=== PATIENT | female | born 1945 | race Caucasian/White ===

== ENCOUNTER 2020-06-13 13:06 | Outpatient (CLI) | payer MEDICARE, OTHER, SELFPAY ==
--- NOTE | 2020-06-13 13:13 | XR_ITS ---
WS: [id number] Right foot, 3 views, 06/13/2020 Clinical Data: PAIN IN TOES Comparison: None. Findings: No fractures or dislocations are seen. No bone destruction or erosion is noted. The joint spaces and soft tissues are unremarkable of the second through fifth toes There is a bunion at the head of the r ight first metatarsal. There is a large Achilles spur and smaller plantar spur. XR/XR foot RT min 3V* [id number] Impression: Negative for fracture or dislocation.
== END 2020-06-13 13:07 | disposition home or self-care (01) ==
LOC: RAD 13:08
PROVIDERS: PCP Family Medicine; Visit Provider Family Medicine
DX: M79.674 Pain in right toe(s) (principal)
CPT/HCPCS: 73630

== ENCOUNTER 2020-06-30 18:35 | Emergency (ER) | payer MEDICARE, OTHER, SELFPAY ==
[2020-06-30 18:47] VITALS: BP 178/80; PULSE 73; RESP 16; TEMP 36.8; O2SAT 99; BMI 25.9
[2020-06-30 21:26] VITALS: BP 176/86; PULSE 75; RESP 18; O2SAT 97
--- NOTE | 2020-06-30 21:29 | XRR_ITS ---
PROCEDURE INFORMATION: Exam: XR Chest, 1 View Exam date and time: 06/30/2020 9:54 PM Age: 74 years old Clinical indication: Hypertension TECHNIQUE: Imaging protocol: XR of the chest Views: 1 view. COMPARISON: CR Chest 1 [place] [id number] 07/05/2019 2:19 PM FINDINGS: Lungs: No lung consolidation or pulmonary edema. Pleural space: No pleural effusion or pneumothorax. Heart/Mediastinum: The cardiac silhouette is not enlarged. The mediastinal contours are normal. Bones/joints: No acute osseous abnormality. XR/XR chest 1V portable [id number] IMPRESSION: No acute abnormality.
--- NOTE | 2020-06-30 22:03 | W.ED.GENADLT ---
HPI - General Adult General: Chief complaint: General Medical Stated complaint: BP ISSUES Time Seen by Provider: 06/30/20 21:26 History of Present Illness: HPI narrative: This patient is a 74-year-old female who presents today with concerns about her blood pressure. She said she started feeling like her blood pressure was going up tonight and checked it at home. Initially it was around 140 systolic and then gradually worked its way up to 170 systolic. She has been on blood pressure medicine for a while and has not had any recent changes. She normally runs a blood pressure around 120/80. She is concerned that something might be going on that would be causing these blood pressure readings. She said this happened once before and she had a UTI. She has had no UTI symptoms today. She does say that occasionally she eats salty food but has not really had any today. After we talked for a while she told me that she is under a lot of stress and is having a lot of difficulty with her [id number] who lives across the street. She has been keeping her from seeing her grandson and that is really bothering her a lot. She said she does really have anyone to talk to about this problem because she does not want to bad mouth her [id number] to other people in the community or at their taoist. I suggested that she talk to her primary care doctor about a counselor so that she will have someone that she can speak freely to about the situation which clearly is affecting her quite a bit. Onset (ago): hour(s) (4) Associated symptoms: Deny chest pain, dyspnea, headache(s), malaise, nausea, rash or vomiting Review of Systems General: Reports: 10 or more systems reviewed and unremarkable except in HPI and below Const: Denies: fever(s), chills, fatigue or malaise Eyes: Denies: change in vision ENMT: Reports: tinnitus; Denies: odynophagia Card: Denies: chest pain or swelling of feet/ankles Resp: Denies: dyspnea, productive cough or non-productive cough GI: Denies: abdominal pain, nausea or vomiting : Denies: flank pain or difficulty voiding Musc: Denies: neck pain or back pain Skin/Breast: Denies: rash Neuro: Denies: headache(s), numbness in extremities or weakness in extremities Sher/Lymph: Denies: easy bruising or easy bleeding Physical Exam Const: COMMON NORMALS: no acute distress, patient oriented x3, no limitations and alert GENERAL APPEARANCE: cooperative and comfortable HENMT: HEAD & SCALP: normal to inspection FACE & SINUS: normal facial exam Eye: GENERAL EYE: appearance normal, both eyes and all related structures Neck/C-Spine: COMMON NORMALS: supple, no meningeal signs and no JVD Chest: COMMONS NORMALS: normal inspection of the chest Resp: COMMON NORMALS: normal respiratory effort, No use of accessory muscles and clear to auscultation bilaterally AUSCULTATION: clear to auscultation bilaterally Cardio: COMMON NORMALS: no JVD, regular rate, regular rhythm and No murmurs present (Cardio) RATE: regular rate RHYTHM: regular rhythm GI: COMMON NORMALS: Normal to inspection, nondistended, normoactive bowel sounds present, Soft to palpation and non-tender INSPECTION: Yes normal to inspection AUSCULTATION: Yes normoactive bowel sounds PALPATION: Yes Soft to palpation Back/Pelvis: COMMON NORMALS: thoracic and lumbar spine normal to inspection Extremity: COMMON NORMALS: normal to inspection Neuro: COMMON NORMALS: patient oriented x3, moves all extremities, no focal motor deficits and no sensory deficits noted SENSORIUM/ORIENTATION: Yes alert MENINGEAL SIGNS: Yes no meningeal signs Psych: COMMON NORMALS: mental status grossly normal, cooperative and normal affect Skin: COMMON NORMALS: no rashes or lesions noted and turgor normal GENERAL SKIN EXAM: no rashes or lesions noted and turgor normal Course ED course: On my evaluation I rechecked the blood pressure for this patient and it was much better, well within the normal range. I told her we would do some blood work, EKG, chest x-ray to make sure that there was no underlying cause for her blood pressure to be elevated. She and I both suspect this is related to stress. Vital Signs: Vital signs: Vital Signs Temperature 98.2 F 06/30/20 18:47 Pulse Rate 87 06/30/20 23:22 Respiratory Rate 16 06/30/20 23:22 Blood Pressure 132/69 06/30/20 23:22 Pulse Oximetry 98 06/30/20 23:22 MDM - General Adult Lab Data: Labs: Lab Results 06/30/20 06/30/20 06/30/20 Range/Units 21:53 21:53 21:53 WBC 6.2 (4.0-10.0) 10^3/ uL RBC 4.19 (4.1-5.3) 10^6/u L Hgb 12.5 (11.5-15.3) g/dL Hct 38.9 (37.0-47.0) % MCV 92.8 (81-99) fL MCH 29.8 (28.0-34.0) pg MCHC 32.1 (30.0-36.0) g/dL RDW 12.8 (12.1-15.1) % Plt Count 293 (130-400) 10^3/c mm MPV 10.2 (7.4-10.4) fL Neut % (Auto) 62.2 % Lymph % (Auto) 23.2 % [place] % (Auto) 10.4 % Eos % (Auto) 3.4 % Baso % (Auto) 0.6 % Neut # (Auto) 3.83 (1.8-7.7) 10^3/u L Lymph # (Auto) 1.4 (0.8-4.8) 10^3/u L [place] # (Auto) 0.6 (0.2-0.9) 10^3/u L Eos # (Auto) 0.2 (0.0-0.8) 10^3/u L Baso # (Auto) 0.0 (0.0-0.1) 10^3/u L Nucleated RBC % (a uto) 0 % Nucleated RBCs # 0.0 /100WBC Sodium 138 (136-145) mmol/L Potassium 4.2 (3.5-5.1) mmol/L Chloride 102 (98-107) mmol/L Carbon Dioxide 26 (22-29) mmol/L Anion Gap 14.2 (5-19) BUN 18 (8-23) mg/dL Creatinine 0.9 (0.5-0.9) mg/dL GFR Calculation Not Reportable Glucose 116 H (65-115) mg/dL Calculated Osmolal ity 289 (285-295) mOsm/k g Calcium 9.5 (8.5-10.5) mg/dL Total Bilirubin 0.4 (0.15-1.2) mg/dL AST 18 (0-32) U/L ALT 16 (0-33) U/L Alkaline Phosphata se 72 (35-105) IU/L Troponin T Baselin e 11 H (0-10) ng/L NT-Pro-B Natriuret Pep 141 (0-450) pg/mL Total Protein 7.7 (6.6-8.7) g/dL Albumin 4.6 (3.5-5.2) g/dL Globulin 3.1 (1.3-4.6) g/dL Discharge Plan Discharge Patient Disposition: Home Clinical Impression: Hypertension Qualifiers: Hypertension type: unspecified Qualified Code(s): I10 - Essential (primary) hypertension Condition: Stable Discharge Orders: Discharge Order (Routine); Ordered 06/30/20 Ordered By: Leelee Clarke Referrals: [facility], [Staff Physician] - 4-7 days Sharon Lombardo MD [Primary Care Provider] - Discharge Diet: Usual diet Discharge Activity: Resume usual activity Patient Instructions: Stress (ED), Chronic Hypertension (ED) Activity Restrictions/Additional Instructions: Continue your regular blood pressure medicines. Return to the ER if you have chest pain, headache, any other concerning new symptoms. Call Dr. Lombardo's office to ask about counseling to help you deal with the stress that you are experiencing. Stress can take a real physical toll on your body. Discharge Date/Time: 06/30/20 23:23 Coding Level of Care Code ED Pilot Plant Supervisor for Bibi Fwd Exam Comprehensive
[2020-06-30 22:15] LABS: Basophils % 0.6 %; Eosinophils # 0.2 10^3/uL (0.0-0.8); Eosinophils % 3.4 %; Hematocrit 38.9 % (37.0-47.0); Hemoglobin 12.5 g/dL (11.5-15.3); Lymphocytes # 1.4 10^3/uL (0.8-4.8); Lymphocytes % 23.2 %; Mean Corpuscular HGB Conc 32.1 g/dL (30.0-36.0); Mean Corpuscular Hemoglobin 29.8 pg (28.0-34.0); Mean Corpuscular Volume 92.8 fL (81-99); Mean Platelet Volume 10.2 fL (7.4-10.4); Monocytes # 0.6 10^3/uL (0.2-0.9); Monocytes % 10.4 %; Neutrophils # 3.83 10^3/uL (1.8-7.7); Neutrophils % 62.2 %; Nucleated Red Blood Cells % 0 %; Platelet Count 293 10^3/cmm (130-400); Red Blood Count 4.19 10^6/uL (4.1-5.3); Red Cell Distribution Width 12.8 % (12.1-15.1); White Blood Count 6.2 10^3/uL (4.0-10.0)
[2020-06-30 22:33] LABS: Alanine Aminotransferase 16 U/L (0-33); Albumin Level 4.6 g/dL (3.5-5.2); Alkaline Phosphatase 72 IU/L (35-105); Anion Gap 14.2 (5-19); Aspartate Amino Transferase 18 U/L (0-32); Blood Urea Nitrogen 18 mg/dL (8-23); Calcium 9.5 mg/dL (8.5-10.5); Carbon Dioxide 26 mmol/L (22-29); Chloride 102 mmol/L (98-107); Globulin 3.1 g/dL (1.3-4.6); Glucose 116 mg/dL (65-115); NT Pro B Type Natriuretic Pept 141 pg/mL (0-450); Osmolality Calculated 289 mOsm/kg (285-295); Potassium 4.2 mmol/L (3.5-5.1); Sodium 138 mmol/L (136-145); Total Bilirubin 0.4 mg/dL (0.15-1.2); Total Protein 7.7 g/dL (6.6-8.7)
[2020-06-30 22:51] LABS: Troponin(5th) Baseline 11 ng/L (0-10)
[2020-06-30 23:22] VITALS: BP 132/69; PULSE 87; RESP 16; O2SAT 98
== END 2020-06-30 23:23 | disposition home or self-care (01) ==
PROVIDERS: Emergency Provider Emergency Medicine; PCP Family Medicine
DX: I10 Essential (primary) hypertension (principal)
CPT/HCPCS: 12345; 36415; 71045; 80053; 83880; 84484; 85025; 99281; 99283

== ENCOUNTER → 2020-09-11 09:19 | Outpatient (BNVA) | payer MEDICARE, OTHER, SELFPAY | PROVIDERS: PCP Family Medicine; Visit Provider Specialist | DX: G56.01 Carpal tunnel syndrome, right upper limb (principal); R20.0 Anesthesia of skin; R20.2 Paresthesia of skin | CPT/HCPCS: 95908 ==

== ENCOUNTER → 2020-10-08 15:09 | Outpatient (BNVA) | payer MEDICARE, OTHER, SELFPAY | PROVIDERS: PCP Family Medicine; Referring Provider Family Medicine; Visit Provider Orthopaedic Surgery | DX: G56.01 Carpal tunnel syndrome, right upper limb (principal) | CPT/HCPCS: 73130 ==

== ENCOUNTER → 2020-10-17 13:37 | Outpatient (BNVA) | payer MEDICARE, OTHER, SELFPAY | PROVIDERS: PCP Family Medicine; Visit Provider Orthopaedic Surgery | DX: Z01.812 Encounter for preprocedural laboratory examination (principal) | CPT/HCPCS: 87635 ==

== ENCOUNTER 2020-10-23 05:47 | Day surgery (SDC) | payer MEDICARE, OTHER, SELFPAY ==
[2020-10-22 13:00] VITALS: BMI 25.8
[2020-10-23 06:09] VITALS: BP 181/80; PULSE 83; RESP 16; TEMP 36.6; O2SAT 99
--- NOTE | 2020-10-23 06:41 | ANES.PREANE2 ---
Pre-Anesthetic Assessment Pre-Anesthetic Assessment: Height/Weight: Height 1.64 m Weight 69.4 kg Temp Pulse Resp BP Pulse Ox 98 F 83 16 181/80 99 10/23/20 06:09 10/23/20 06:09 10/23/20 06:09 10/23/20 06:09 10/23/20 06:09 Preop Diagnosis: Carpal tunnel syndrome right Proposed Procedure: Operation Date: 10/23/20 07:00 Proposed Procedures p Carpal Tunnel Release 01934 G56.01(Right) - Braulio Arciniega MD Familial anesthetic complications: None Was Beta Janis taken within 24 hours: Yes Last intake: NPO > 8 hrs Social: Social History: No alcohol and No tobacco Exam: Pre-Anes Outpt Exam: alert, oriented x 3, clear to auscultation bilaterally and regular rate & rhythm Airway: Cervical ROM: WNL MP: 3 Dentition: Chipped (L side) and Other (3 missing) CV/HEM: CV/HEM: HTN Metabolic: Metabolic: Thyroid Anesthetic Plan: ASA status: 2 Anesthesia: MAC and Regional (specify below) (ricci block) Risk of > 500 ml blood loss (7ml/kg in children): No PFSH Anesthesia PFSH: Social History (Updated 10/08/20 @ 15:20 by Monique Jung LPN) Smoking and tobacco status: never smoked Alcohol intake: never Data Anesthesia Cardiac Studies: No Data to Display
[2020-10-23] MEDS: sodium chloride 0.9% 1,000 ML 30 ML IV (06:43)
--- NOTE | 2020-10-23 06:52 | W.PM.OPSUD ---
Surgery/Procedure H&P Update DATE OF PROCEDURE: October 23, 2020 DATE H&P PERFORMED: 10/08/20 PREOP DIAGNOSIS: Carpal tunnel syndrome right PLANNED PROCEDURE: Operation Date: 10/23/20 07:00 Proposed Procedures p Carpal Tunnel Release 99462 G56.01(Right) - Braulio Arciniega MD
[2020-10-23 07:41] VITALS: BP 122/66; PULSE 67; RESP 16; TEMP 36.1; O2SAT 98
--- NOTE | 2020-10-23 07:42 | ANE.PACU2 ---
Inpatient post-anesthesia follow up: Airway intact: Yes Vital signs: Temperature 98 F Pulse Rate 83 Respiratory Rate 16 Blood Pressure 181/80 Pulse Oximetry 99 Oxygen Delivery Me thod Room Air Oxygen Flow Rate Fraction of Inspir ed Oxygen Hydration adequate: Yes Nausea and vomiting: No Pain level: 1 Mental status: Baseline
--- NOTE | 2020-10-23 07:44 | PM.OP ---
Operative Report Date of procedure: October 23, 2020 Pre-op Diagnosis: Carpal tunnel syndrome right Post-op diagnosis: same Post-op Findings: Same Procedure Done: Right carpal tunnel syndrome Pathology: none sent Anesthesia: Nerve Block (Vishnu block) Estimated blood loss (mL): 5 Tourniquet time (min): 21 Findings: No masses or space-occupying lesions were seen within the carpal tunnel Condition: stable Disposition: same day Procedure: Patient was taken to the operating room and anesthesia provided by the anesthesia service. She was prepped and draped with the arm exposed. A timeout was performed. A 3 cm long incision was made in line with the fourth ray from the distal edge of the carpal tunnel extending proximally. The subcutaneous fat and palmar fascia was divided with a scalpel blade. Under loupe magnification the ulnar neurovascular bundle was identified distally. A hemostat could be passed under the transverse carpal ligament allowing the distal 25% to be divided. A slotted guide was then passed beneath the transverse carpal ligament and the middle 50% divided. Blunt scissors were then passed over the guide freeing the proximal ligament. The tourniquet was deflated. Hemostasis provided with electrocautery. Wound edges were infiltrated with 10 cc of a half percent Marcaine solution. Skin edges were reapproximated with 3-0 Prolene. Sterile dressings were applied. The patient was taken to the recovery room in stable condition
[2020-10-23 07:55] VITALS: BP 126/70; PULSE 63; RESP 16; O2SAT 99
== END 2020-10-23 08:20 | disposition home or self-care (01) ==
PROVIDERS: PCP Family Medicine; Visit Provider Orthopaedic Surgery
PROC: (CPT 64721; principal; 2020-10-23 07:00)
DX: G56.01 Carpal tunnel syndrome, right upper limb (principal); I10 Essential (primary) hypertension
CPT/HCPCS: 64721; 12345; 96365; J0690; J2704; J3010; J3490; J7030

== ENCOUNTER 2020-12-19 12:01 | Emergency (ER) | payer MEDICARE, OTHER, SELFPAY ==
[2020-12-19 12:07] VITALS: PULSE 83; RESP 18; TEMP 36.8; O2SAT 98; BMI 25.6
[2020-12-19 12:13] VITALS: BP 182/72; PULSE 78; RESP 18; O2SAT 99
--- NOTE | 2020-12-19 12:30 | XR_ITS ---
WS: [id number] Portable AP upright chest, 12/19/2020 Clinical Data: htn Comparison: Portable chest, 06/30/2020. Findings: No nodules, masses or effusions are seen. The heart is normal. The pulmonary vascularity is not increased. No pneumonia or pneumothorax is seen. The aortic arch and descending aorta are minima lly tortuous. XR/XR chest 1V portable [id number] Impression: Atherosclerosis.
--- NOTE | 2020-12-19 12:30 | ECG_ITS ---
[facility] Test Date: 2020-12-19 Pat Name: Venkata Spring Department: Room: Gender: Female Alteration Hand: : 1945 Requested By: Terra Plummer Order Number: [id number] Fadumo MD: Jc Dean M.D. Measurements Intervals [place] Rate: 70 P: 30 NM: 178 QRS: 2 QRSD: 88 T: 40 QT: 371 QTc: 400 Interpretive Statements SINUS RHYTHM POSSIBLE RIGHT VENTRICULAR CONDUCTION DELAY [RSR (QR) IN V1/V2] Compared to ECG 07/05/2019 14:27:26 No significant changes Electronically Signed On 12-19-2020 18:30:53 CDT by Jc Dean M.D. [id number]
--- NOTE | 2020-12-19 12:34 | W.ED.GENADLT ---
HPI - General Adult General: Chief complaint: General Medical Stated complaint: HIGH BP Time Seen by Provider: 12/19/20 12:19 Source: patient Mode of arrival: ambulatory Limitations: no limitations History of Present Illness: HPI narrative: Patient presents with having elevated blood pressure today feeling a little bit of a headache she denies any strokelike symptoms she says she tested herself in the mirror and did not see any deficits. She denies any chest pain. She took her amlodipine 2.5 mg and losartan 50 mg at around 8:00. But then she checked her blood pressure couple of hours later because she had a headache and her blood pressure was elevated in the 180s over 80s and 90s she has had this problem before and was seen here at this facility in the fall with similar complaints. Patient thinks she might be under stress a little bit more but she just wanted to be checked out Review of Systems General: Reports: 10 or more systems reviewed and unremarkable except in HPI and below Narrative: General: denies fatigue, fever or chills HEENT: denies ear pain, denies nasal congestion, denies vision changes, denies sore throat Neck: denies masses or pain Resp: denies cough, denies shortness of breath, denies pleuritic pain Cardio: denies chest pain, denies edema GI: denies abdominal pain, denies N/V/D, denies black/tarry or bloody stools : denies hematuria, denies dysuria Neuro: Mild diffuse headache, denies dizziness, denies motor or sensory changes Musculoskeletal: denies pain, denies swelling Skin: denies rashes Psych: denies SI or HI Endocrine: denies thyroid symptoms, denies lymphadenopathy all over ROS reviewed and patient denies PFSH ED PFSH: Social History Smoking and tobacco status: never smoked Alcohol intake: never Physical Exam Narrative: EXAM NARRATIVE: General: a/o/3, no distress Head: atraumatic HEENT: normal eyes, normal conjunctiva, normal hearing, normal external nose, normal mouth, mucous membranes moist Neck: FROM, trachea midline Chest: normal expansion, no gross deformities Resp: normal speech, no retractions, no accessory muscle use, CTA bilaterally Cardio: regular rate and rhythm and no murmur, no peripheral edema, normal peripheral pulses GI: soft, flat non tender, no guarding normal BS : deferred Musculoskeletal: FROM, no pain or gross deformities Neuro: normal speech, normal operator electronic warfare, CN II-XII grossly intact, coordination intact Skin: no rashes Psych: cooperative, normal mood and effect Course Vital Signs: Vital signs: Vital Signs Temperature 98.2 F 12/19/20 12:07 Pulse Rate 77 12/19/20 14:05 Respiratory Rate 18 12/19/20 13:02 Blood Pressure 116/85 12/19/20 14:05 Pulse Oximetry 96 12/19/20 14:05 MDM - General Adult MDM Narrative: Medical decision making narrative: Patient is stable blood pressure was 182/79 EKG was normal discussed with patient doing a basic lab work I do not see any labs in her system since June patient is agreeable to do this as well as urinalysis and is all unremarkable. I had started to give the patient amlodipine and low Darlyn here in the ER but she refused saying she is afraid that we would bottom her out. We let the patient's in the ER for a little bit her blood pressure improved on its own to 139/89 so therefore we will hold on any medications at this time. I discussed with her that if this really occurs she could take an extra half tablet of losartan at home or a full tablet to see if that helps with her blood pressure but if she is having type symptoms she needs to return to the ER. She needs to keep track of her blood pressure at home follow-up with her provider return if any worsening of symptoms Medical Records: Attestation: I reviewed the patient's medical records. Lab Data: Attestation: I reviewed the patient's lab results. Labs: Lab Results 12/19/20 12/19/20 12/19/20 Range/Units 12:55 13:00 13:00 WBC 5.2 (4.0-10.0) 10^3/ uL RBC 4.32 (4.1-5.3) 10^6/u L Hgb 12.7 (11.5-15.3) g/dL Hct 40.2 (37.0-47.0) % MCV 93.1 (81-99) fL MCH 29.4 (28.0-34.0) pg MCHC 31.6 (30.0-36.0) g/dL RDW 12.8 (12.1-15.1) % Plt Count 316 (130-400) 10^3/c mm MPV 9.8 (7.4-10.4) fL Neut % (Auto) 62.0 % Lymph % (Auto) 21.3 % [place] % (Auto) 11.3 % Eos % (Auto) 4.4 % Baso % (Auto) 0.8 % Neut # (Auto) 3.22 (1.8-7.7) 10^3/u L Lymph # (Auto) 1.1 (0.8-4.8) 10^3/u L [place] # (Auto) 0.6 (0.2-0.9) 10^3/u L Eos # (Auto) 0.2 (0.0-0.8) 10^3/u L Baso # (Auto) 0.0 (0.0-0.1) 10^3/u L Nucleated RBC % (a uto) 0 % Nucleated RBCs # 0.0 /100WBC Sodium 139 (136-145) mmol/L Potassium 4.0 (3.5-5.1) mmol/L Chloride 101 (98-107) mmol/L Carbon Dioxide 31 H (22-29) mmol/L Anion Gap 11.0 (5-19) BUN 19 (8-23) mg/dL Creatinine 0.9 (0.5-0.9) mg/dL GFR Calculation Not Reportable Glucose 142 H (65-115) mg/dL Calculated Osmolal ity 293 (285-295) mOsm/k g Calcium 9.4 (8.5-10.5) mg/dL Total Bilirubin 0.5 (0.15-1.2) mg/dL AST 18 (0-32) U/L ALT 16 (0-33) U/L Alkaline Phosphata se 69 (35-105) IU/L Total Protein 7.9 (6.6-8.7) g/dL Albumin 4.2 (3.5-5.2) g/dL Globulin 3.7 (1.3-4.6) g/dL Urine Color Yellow (Yellow) Urine Appearance Clear (CLEAR) Urine pH 6 (5-7) Ur Specific Gravit y 1.015 (1.005-1.030) Urine Protein Neg (Negative) Urine Glucose (UA) Norm (Normal) Urine Ketones Negative (Negative) Urine Blood Neg (Negative) Urine Nitrate Negative (Negative) Urine Bilirubin Neg (Negative) Urine Urobilinogen Norm (Negative) mg/dL Ur Leukocyte Brie ase Negative (Negative) Urine RBC None (0-2) /hpf Urine WBC Rare (0-5) /hpf Ur Squamous Epith Cells 0-4 H (0-5) /hpf Amorphous Sediment Not Reportable Urine Bacteria Trace (NONE) /hpf EKG Data^: EKG 1: Attestation: I personally reviewed and interpreted this EKG as follows: EKG interpretation date: 12/19/20 EKG interpretation time: 12:52 Interpretation: Normal sinus rhythm rate is [address] elevation or depression Computer generated interpretation: Chest X-Ray 12/19/20 12:30 Impression: Atherosclerosis. Discharge Plan Discharge Patient Disposition: Home Clinical Impression: Hypertension Qualifiers: Hypertension type: essential hypertension Qualified Code(s): I10 - Essential (primary) hypertension Condition: Stable Prescriptions: No Action levothyroxine 50 mcg capsule 50 mcg PO DAILY@06 RF: 0 metoprolol succinate 25 mg tablet extended release 24 hr 25 mg PO BEDTIME RF: 0 losartan 50 mg tablet 50 mg PO QAM RF: 0 hydrocodone-acetaminophen [[place]] 5-325 mg tablet 1 tab PO Q4H PRN (Reason: pain) Qty: 20 RF: 0 Allergy Nasal [place] 1 spray nasal PRN RF: 0 multivitamin Tablet 1 tab PO QPM RF: 0 amlodipine 2.5 mg tablet 2.5 mg PO QAM RF: 0 Tylenol Extra Strength 500 mg Tablet 500 mg PO PRN RF: 0 magnesium 250 mg Tablet 250 mg PO QPM RF: 0 Discharge Orders: Discharge ED (Routine); Ordered 12/19/20 Ordered By: Terra Nair Referrals: Sharon Lombardo MD [Primary Care Provider] - Discharge Activity: Resume usual activity Activity Restrictions/Additional Instructions: Recommend you monitor your blood pressure and if you feel it is elevated then you can take half to 1 extra of your losartan's Return if you have chest pain shortness of breath headaches any type of symptoms with elevated blood pressure or any tingling Thank you for choosing [facility] for your healthcare needs today. Please realize this is an emergency room and that we are providing you with a medical screening exam and this may not be complete and all inclusive of all the testing and or work up that you may need to determine your ailment or severity of your illness. It is very important that you follow up as instructed or that you return to the Emergency Department should you have concerns or if your condition changes or worsens in any way. Coding Level of Care Code ED Eyelet Punch Operator for Bibi Walton
[2020-12-19 13:02] VITALS: BP 139/69; PULSE 76; RESP 18; O2SAT 99
[2020-12-19 13:10] LABS: Basophils % 0.8 %; Eosinophils # 0.2 10^3/uL (0.0-0.8); Eosinophils % 4.4 %; Hematocrit 40.2 % (37.0-47.0); Hemoglobin 12.7 g/dL (11.5-15.3); Lymphocytes # 1.1 10^3/uL (0.8-4.8); Lymphocytes % 21.3 %; Mean Corpuscular HGB Conc 31.6 g/dL (30.0-36.0); Mean Corpuscular Hemoglobin 29.4 pg (28.0-34.0); Mean Corpuscular Volume 93.1 fL (81-99); Mean Platelet Volume 9.8 fL (7.4-10.4); Monocytes # 0.6 10^3/uL (0.2-0.9); Monocytes % 11.3 %; Neutrophils # 3.22 10^3/uL (1.8-7.7); Nucleated Red Blood Cells % 0 %; Platelet Count 316 10^3/cmm (130-400); Red Blood Count 4.32 10^6/uL (4.1-5.3); Red Cell Distribution Width 12.8 % (12.1-15.1); White Blood Count 5.2 10^3/uL (4.0-10.0)
[2020-12-19 13:20] LABS: Add Urine Culture? No; Bacteria Urine TRACE /hpf; Bilirubin Urine Neg (Negative); Blood Urine Neg (Negative); Glucose Urine UA Norm (Normal); Ketones Urine Negative (Negative); Leukocyte Esterase Urine Negative (Negative); Nitrate Urine Negative (Negative); Protein Urine Neg (Negative); Specific Gravity, Urine 1.015 (1.005-1.030); Squamous Epithelial Cell Urine 0-4 /hpf (0-5); Urine Appearance Clear (CLEAR); Urine Color Yellow (Yellow); Urobilinogen Urine Norm (Negative); WBC Urine RARE /hpf (0-5); pH Urine 6 (5-7)
[2020-12-19 13:26] LABS: Alanine Aminotransferase 16 U/L (0-33); Albumin Level 4.2 g/dL (3.5-5.2); Alkaline Phosphatase 69 IU/L (35-105); Aspartate Amino Transferase 18 U/L (0-32); Blood Urea Nitrogen 19 mg/dL (8-23); Calcium 9.4 mg/dL (8.5-10.5); Carbon Dioxide 31 mmol/L (22-29); Chloride 101 mmol/L (98-107); Globulin 3.7 g/dL (1.3-4.6); Glucose 142 mg/dL (65-115); Osmolality Calculated 293 mOsm/kg (285-295); Sodium 139 mmol/L (136-145); Total Bilirubin 0.5 mg/dL (0.15-1.2); Total Protein 7.9 g/dL (6.6-8.7)
[2020-12-19 14:05] VITALS: BP 116/65; BP 116/85; PULSE 77; O2SAT 96
== END 2020-12-19 14:05 | disposition home or self-care (01) ==
PROVIDERS: Emergency Provider Emergency Medicine; PCP Family Medicine
DX: I10 Essential (primary) hypertension (principal)
CPT/HCPCS: 71045; 80053; 81001; 85025; 93005; 99283

== ENCOUNTER 2023-08-26 11:58 | Outpatient (CLI) | payer MEDICARE, SELFPAY ==
--- NOTE | 2023-08-26 12:09 | USCV_ITS ---
SawVenkata alfonso Age: 77 Gender: F : 1945 Exam Date: 08/26/2023 12:36 Ordering Phys: Sharon Lombardo MD Technologist: [place] [facility] [place]: bruit Risk Factors: Previous Vascular Surgery: Right Brachial BP: / Left Brachial BP: / Right Left Velocity (cm/s) Spectral Plaque Velocity (cm/s) Spectral Plaque Syst/Diast Broadening Syst/Diast Broadening 78.30/ 17.60 Prox CCA 86.30 / 20.60 70.00/ 19.70 Mid CCA 61.00 / 15.00 81.80/ 16.80 Distal CCA 74.10 / 17.80 76.10/ 18.80 Prox ICA 68.40 / 23.20 60.00/ 21.50 Mid ICA 75.30 / 21.00 70.70/ 29.50 Distal ICA 85.00 / 26.30 81.80 ECA 63.40 0.93 ICA/CCA 0.98 Antegrade Vertebral Antegrade 35.70/ 13.20 cm/s 51.80/ 18.70 cm/s Bi Subclavian Bi 110.3 102.5 0 0 CONCLUSIONS Right ICA stenosis <50%. Mild atheromatous plaque right carotid bulb/ICA. Left ICA stenosis <50%. Mild atheromatous plaque left carotid bulb/ICA. Normal antegrade Doppler flow noted in the right vertebral artery. Normal antegrade Doppler flow noted in the left vertebral artery. Doyle Mcghee MD (Electronically Signed) Final Date: 29 August 2023 09:17 S
== END 2023-08-26 11:59 | disposition home or self-care (01) ==
LOC: RAD 11:59
PROVIDERS: PCP Family Medicine; Visit Provider Family Medicine
DX: I65.23 Occlusion and stenosis of bilateral carotid arteries (principal); R09.89 Other specified symptoms and signs involving the circulatory and respiratory systems
CPT/HCPCS: 93880